=== PATIENT | female | born 1975 | race Caucasian/White ===

== ENCOUNTER 2019-04-17 20:07 | Emergency (ER) | payer OTHER, SELFPAY ==
[2019-04-17] MEDS ORDERED: Ketorolac Tromethamine 60 MG/2 ML VIAL ONE (21:34)
== END 2019-04-17 23:14 | disposition home or self-care (01) ==
LOC: ERS 20:07
DX: S16.1XXA Strain of muscle, fascia and tendon at neck level, initial encounter (principal); I10 Essential (primary) hypertension; F31.9 Bipolar disorder, unspecified; F41.9 Anxiety disorder, unspecified; F17.210 Nicotine dependence, cigarettes, uncomplicated; Z71.6 Tobacco abuse counseling; X58.XXXA Exposure to other specified factors, initial encounter
CPT/HCPCS: 96372; 99406; J1885

== ENCOUNTER 2020-03-26 11:25 | Emergency (ER) | payer OTHER ==
[2020-03-26] MEDS ORDERED: Diazepam 5 MG TAB ONE (13:06)
[2020-03-26] MEDS ORDERED: Ketorolac Tromethamine 30 MG/ML VIAL ONE (13:06)
== END 2020-03-26 14:05 | disposition home or self-care (01) ==
LOC: ERS 11:25
DX: M62.838 Other muscle spasm (principal); F41.9 Anxiety disorder, unspecified; F31.9 Bipolar disorder, unspecified; F17.210 Nicotine dependence, cigarettes, uncomplicated
CPT/HCPCS: 96372; 99283; J1885

== ENCOUNTER 2020-04-13 14:48 | Outpatient (CLI) | payer OTHER ==
--- NOTE | 2020-04-13 15:17 | RAD ---
Exam:2 views left femur HISTORY: Pain COMPARISON: None FINDINGS: No fracture, cortical irregularity or periosteal reaction. IMPRESSION: No radiographic abnormality.
--- NOTE | 2020-04-13 15:59 | RAD ---
CERVICAL SPINE SERIES THREE VIEWS: History: Neck pain FINDINGS: The vertebral bodies are normal in height. Degenerative osteophytic changes and mild disc narrowing a re seen at C5-6 and C6-7. There is some calcification to the left side of the neck which could be car otid bulb calcifications. IMPRESSION: 1. Mild arthritic change of the cervical spine. No acute findings. 2. Calcification on the left side of the neck. Potentially, these are carotid bulb calcifications. POS: [facility]
== END 2020-04-13 14:49 | disposition home or self-care (01) ==
LOC: BICRAD 14:48
PROVIDERS: ATTEND Family Medicine
DX: M79.602 Pain in left arm (principal); M54.2 Cervicalgia; M47.812 Spondylosis without myelopathy or radiculopathy, cervical region; R93.7 Abnormal findings on diagnostic imaging of other parts of musculoskeletal system
CPT/HCPCS: 72040